=== PATIENT | female | born 1955 | race Two or more races ===

== ENCOUNTER 2023-12-30 05:42 | Emergency (ER) | payer OTHER ==
[~2023-12-30] VITALS: Ht 165.1 cm; Wt 81.6 kg
[2023-12-30] MEDS ORDERED: OZEMPIC0.25 MG/02 (06:09)
[2023-12-30] MEDS ORDERED: SIMVASTATIN5 MG (06:09)
[2023-12-30] MEDS ORDERED: LANTUS SOL100 UNIT/1 (06:09)
[2023-12-30] MEDS ORDERED: LISINOPRIL5 MG (06:09)
[2023-12-30] MEDS ORDERED: TOPROL XL50 M1 (06:09)
[2023-12-30] MEDS ORDERED: JARDIANCE10 MG (06:09)
[2023-12-30] MEDS ORDERED: HYOSCYAMINE SULFATE 0.125 MG TAB.SUBL SL STA (06:36)
[2023-12-30] MEDS ORDERED: FAMOTIDINE/PF 20 MG/2 ML VIAL IV PUSH STA (06:36)
[2023-12-30] MEDS ORDERED: POTASSIUM CHLORIDE/NACL 0.9% 1,000 ML IV ONE (06:45)
[2023-12-30 08:15] LABS: HEMATOCRIT 46.2 % (36.0-45.00); HEMOGLOBIN 15.6 g/dL (12.0-15.00); MEAN CELL VOLUME 87.5 fL (80.00-100.00); MEAN CORPUSCULAR HEMOGLOBIN 29.6 pg (27.00-32.0); MEAN CORPUSCULAR HGB CONC 33.8 g/dl (32.0-36.0); PLATELET COUNT 207 K/uL (150-450); RED BLOOD COUNT 5.29 M/uL (4.00-6.00)
[2023-12-30 09:49] LABS: ALBUMIN 3.7 gm/dL (3.4-5.0); BILIRUBIN TOTAL 0.65 mg/dL (0.3-1.2); CALCIUM 9.1 mg/dL (8.5-10.1); CREATININE SERUM 1.06 mg/dL (0.55-1.02); GFR 51.25; GLOBULINA 3.8 G/DL (2.4-3.5); TOTAL PROTEIN 7.5 gm/dL (6.4-8.2)
[2023-12-30 09:55] LABS: URINE APPEARANCE Clear; URINE BILIRRUBIN Negative (NEGATIVE); URINE BLOOD Negative; URINE COLOR Yellow; URINE LEUKOCYTE Negative; URINE NITRATE Negative; URINE PROTEIN Negative (NEGATIVE); URINE UROBILINOGEN 0.2 E.U./dl
[2023-12-30 09:59] LABS: URINE EPITHELIAL CELLS 9.1 uL (0.0-38.8); URINE WBC 2.1 uL (0.0-23.2)
[2023-12-30 09:59] LABS: POTASSIUM 4.07 mEq/L (3.5-5.1)
[2023-12-30 10:09] LABS: URINE GLUCOSE >=1000 MG/DL (NEGATIVE); URINE KETONE 80 (NEGATIVE)
[2023-12-30] MEDS ORDERED: METRONIDAZOLE/SODIUM CHLORIDE 500 MG/100 ML PIGGYBACK IV ONE (11:15)
[2023-12-30] MEDS ORDERED: CIPROFLOXACIN IN 5 % DEXTROSE 400 MG/200 ML PIGGYBAG IV SCH (13:00)
== END 2023-12-30 14:16 | disposition home or self-care (01) ==
LOC: ER 05:42
PROVIDERS: General Practice
DX: A08.8 Other specified intestinal infections (principal); N39.0 Urinary tract infection, site not specified; E11.9 Type 2 diabetes mellitus without complications; Z79.4 Long term (current) use of insulin; Z79.84 Long term (current) use of oral hypoglycemic drugs; I10 Essential (primary) hypertension
CPT/HCPCS: 36415; 96365; 96366; 99283; J0744; J3480; J3490